=== PATIENT | female | born 2000 | race African-American/Black ===

== ENCOUNTER 2025-06-25 15:54 | Outpatient (CLI) | payer OTHER, SELFPAY ==
--- NOTE | ~2025-06-25 | US_ITS ---
EXAMINATION: US pelvic complete w TV, 06/25/2025 15:57 CDT HISTORY: Abnormal Uterine bleeding Comparison: None Technique: Vazquez-scale and color Doppler images were obtained. Findings: Uterus: Uterus anteverted 7.3 x 4.5 x 4.9 cm. . Endometrium 1.3 cm with a heterogeneous appearance, no areas of increased flow. Right Ovary:Right ovary 4.5 x 2.2 x 2.8 cm, no adnexal mass, normal flow. Left Ovary: Left ovary 3.3 x 2.8 x 3.8 cm, no adnexal mass, normal flow. Free Fluid: None Impression: Abnormal appearing endometrium. Tissue sampling is suggested Reviewed, dictated and finalized at location P. Impression: Abnormal appearing endometrium. Tissue sampling is suggested
== END 2025-06-25 15:55 | disposition home or self-care (01) ==
LOC: MICIMG 15:56
DX: N93.8 Other specified abnormal uterine and vaginal bleeding (principal)
CPT/HCPCS: 76830; 76856

== ENCOUNTER 2025-07-15 00:07 | Day surgery (SDC) | payer OTHER, SELFPAY ==
--- NOTE | 2025-07-03 10:44 | SUR.PREOP ---
[facility] has started construction of its new state of the art ER which will open Spring 2026. With this, we anticipate parking may be a challenge for some our surgical patients and families. Parking spaces are limited but are available for all Surgical, obstetrics, and ER patients sharing this lot. If you arrive and find you are having a hard time finding a parking space, please note that we understand the challenges, please drive around the hospital and park near Hospital Entrance 1. When you enter this entrance, you can ask a volunteer to direct or take you back to the surgical waiting area to check in. We appreciate everyone?s understanding of these expected challenges while we build for your future. Report to the Outpatient Waiting Room, entrance under the green pavilion located off [address], at time _830AM_ on date __07/15/25__. Planned Procedure Time: _1030__.? Time changes happen often and if your time is changed the preop area will call you the afternoon before. - You and your visitor will be asked to self-screen and do not enter if you have any COVID symptoms. Please call surgeon if you need to reschedule. - A mask is optional within the hospital at this time. Patients may have clear liquids (water, carbonated beverages, clear teas, apple juice) until 3 hours prior to surgery with a maximum of 20 ounces. - No food from midnight until time of surgery and no smoking, or chewing tobacco (or any form of nicotine). No chewing gum, candy or mints. Take only the following medications with a SIP of water on the morning of surgery: _None__ DO NOT STOP ANY OF YOUR OTHER PRESCRIPTION MEDICATIONS PRIOR TO SURGERY EXCEPT THE FOLLOWING Hold all vitamins and supplements for 3 days per anesthesiologist. Medications to hold per physician:Holding PO and SQ insulin morning of surgery Date to take last dose vitamins 11.6.25 Please no make-up, nail ugandan, hairspray, perfume, deodorant, or body powder the day of surgery.? No jewelry (including any body piercings) or valuables the day of surgery, leave them at home.? Please take a shower or bath the night before, or the morning of, surgery with an antibacterial soap.? Wear comfortable, loose fitting clothing.? - Jewelry must be removed prior to entering the operating room.? Rings and piercings that are not removed may be cut off. - The hospital will not accept responsibility for valuables.? - Please leave all valuables, including medications, at home the day of surgery. If you are going home after surgery, a licensed pile driver must drive you home.? - NO public transportation without another adult if you receive anesthesia. - We recommend that an adult stay with you for 24 hours following discharge. - We also recommend that you do not drive, make important decision, drink alcoholic beverages, or take any drugs that were not prescribed by your health care provider for at least 24 hours after your discharge time. Follow any additional instructions given to you from your surgeon. Telephone instructions given to __Ty__and asked if any additional questions and then verbalized understanding. Patient advised to call surgeon office or pre surgery nurse liaison [phone] if any additional questions.
[2025-07-03 10:51] VITALS: BMI 49.8
--- OUTSIDE RECORDS SUMMARY | 2025-07-15 00:09 | XMS_ITS | Encounter Summary ---
Author Organization [facility] Address [address] [place] [address] Care Team Providers Care Footwear Stitcher Name Role Phone Evelin Foster PA-C Unavailable [phone] Evelin Foster PA-C Primary Care Provider [phone] Encounter Details Date Type Department Care Team ([facility] Contact Info) Description 10/08/2024 [employer] Message Enc [facility] Call Center [address] [place] [phone] Zak [facility] Provider metFORMIN ER (GLUCOPHAGE-XR) 500 MG 24 hr tablet Social History Tobacco Use Types Packs/Day Years Used Date Smoking Tobacco: Never Smokeless Tobacco: Never Alcohol Use Standard Drinks/Week Comments Not Currently 0 (1 standard drink = 0.6 oz pur e alcohol) B1300 Health Literacy Answer Date Recor ded How often do you need to hav e someone help you when you read instructions, pamphlets, or other written material from your doctor or pharmacy? Never 05/20/2024 [facility] Utilities Answer Date Recorded In the past 12 months has e [employer], [employer], or water [employer] threatened to shut off services in your home? No 05/20/2024 Humiliation, Afraid, Rape, and Kick questionnair e Answer Date Recorded Within the last year, have y ou been afraid of your partner or ex-partner? No 05/20/2024 Within the last year, have y ou been humiliated or emotionally abused in other ways by your partner or ex-partner? No Within the last year, have y ou been kicked, hit, slapped, or otherwise physically hurt by your partner or ex-partner? No 05/20/2024 Within the last year, have y ou been raped or forced to have any kind of sexual activity by your partner or ex-partner? No 05/20/2024 Social Connection and Isolation Panel Answer Date Recorded In a typical week, how many times do you talk on the phone with family, friends, or neighbors? More than three times a week 05/20/2024 How often do you get togethe r with friends or relatives? Once a week 05/20/2024 How often do you attend chur or islam services? Never 05/20/2024 Do you belong to any clubs o r organizations such as sabianist groups, unions, fraternal or athletic groups, or school groups? No 05/20/2024 How often do you attend meet ings of the clubs or organizations you belong to? Never 05/20/2024 Are you , , di vorced, , never , or living with a partner? Living with partner 05/20/2024 AUDIT-C Answer Date Recorded Q1: How often do you have a drink containing alcohol? Never 05/20/2024 Q2: How many drinks containi ng alcohol do you have on a typical day when you are drinking? Patient does not drink Q3: How often do you have si x or more drinks on one occasion? Never 05/20/2024 Overall Financial Resource Strain (CARDIA) Answe r Date Recorded How hard is it for you to pa y for the very basics like food, housing, medical care, and heating? Not hard at all 05/20/2024 [facility] - Occupational Stress Questionnaire Answer Date Recorded Do you feel stress - tense, restless, nervous, or anxious, or unable to sleep at night because your mind is troubled all the time - these days? Only a little 05/20/2024 Exercise Vital Sign Answer Date Recorde d On average, how many days pe r week do you engage in moderate to strenuous exercise (like a brisk walk)? 0 days 05/20/2024 On average, how many minutes do you engage in exercise at this level? 0 min 05/20/2024 Hunger Vital Sign Answer Date Recorded Within the past 12 months, y ou worried that your food would run out before you got the money to buy more. Never true 05/20/20 24 Within the past 12 months, t he food you bought just didn't last and you didn't have money to get more. Never true 05/20/2024 PRAPARE - Transportation Answer Date Re corded In the past 12 months, has l ack of transportation kept you from medical appointments or from getting medications? No 05/06 In the past 12 months, has l ack of transportation kept you from meetings, work, or from getting things needed for daily living? No 05/20/2024 Housing Stability Vital Sign Answer Augustin e Recorded In the last 12 months, was t here a time when you were not able to pay the mortgage or rent on time? No 05/20/2024 In the past 12 months, how m any times have you moved where you were living? 1 05/20/2024 At any time in the past 12 m [facility], were you homeless or living in a halfway (including now)? No 05/20/2024 Comments No Sex and Gender Information Value Date Recorded Sex Assigned at Not on file Legal Sex Female 9:37 AM CDT Gender Identity Not on file Sexual Orientation Not on file documented as of this encounter Functional Status * Are you deaf or do you have serious difficulty hearing Answer Date of Assessment Author Status No 05/20/2024 11:00 PM Kym Hopper RN Active * Are you blind or do you have serious difficulty seeing, even when wearing glasses? Answer Date of Assessment Author Status No 05/20/2024 11:00 PM Kym Hopper RN Active * Do you have serious difficulty walking or climbing stairs? Answer Date of Assessment Author Status No 05/20/2024 11:00 PM Kym Hopper RN Active * Do you have difficulty dressing or bathing? Answer Date of Assessment Author Status No 05/20/2024 11:00 PM Kym Hopper RN Active * Because of a physical, mental, or emotional condition, do you have difficulty doing errands alone such as visiting a doctor's office or shopping? Answer Date of Assessment Author Status No 05/20/2024 11:00 PM Kym Hopper RN Active documented as of this encounter Mental Status * Because of a physical, mental, or emotional condition, do you have serious difficulty concentrating, remembering, or making decisions? Answer Entry Date Author Status No 05/20/2024 11:00 PM Kym Hopper RN Active documented in this encounter Plan of Treatment Not on file documented as of this encounter Goals Goal Patient Goal Type Associated Problems Recent Progress Patient-Stated? Author Health - patient able to perform ADLs independently Lifestyle No Luba Salcido RN documented as of this encounter Visit Diagnoses Not on filedocumented in this encounter Care Teams Footwear Stitcher Relationship Specialty Start Date End Date Evelin Foster PA-C [address] [place] [address] PCP - General PHYSICIAN HOSPITAL NURSING ASSISTANT 05/21/24 Evelin Foster PA-C [address] [place] [address] PHYSICIAN HOSPITAL NURSING ASSISTANT 01/02/24 documented as of this encounter
--- OUTSIDE RECORDS SUMMARY | 2025-07-15 00:09 | XMS_ITS | Encounter Summary ---
Author Organization [facility] Address [address] [place] [address] Care Team Providers Care Hydrologic Engineer Name Role Phone Evelin Foster Primary Care Provider [phone] Encounter Details Date Type Department Care Team (Late st Contact Info) Description 06/24/2025 Results Follow-Up [facility] Medical [facility] Family Medicine [address] [phone] Chelsey Ott PA [address] [address] CBC with auto differential, Iron profile w/ IBC, Ferritin, CBC MORPHOLOGY Social History Tobacco Use Types Packs/Day Years Used Date Smoking Tobacco: Never Smokeless Tobacco: Never Alcohol Use Standard Drinks/Week Comments Never 0 (1 standard drink = 0.6 oz pur e alcohol) PHQ-2 Answer Date Recorded PHQ-2 Total Score (If total score is 3 or more points, staff should administer the PHQ-9) 0 05/29/2025 AUDIT-C Answer Date Recorded Q1: How often do you have a drink containing alcohol? Never 05/29/2025 Q2: How many drinks containi ng alcohol do you have on a typical day when you are drinking? Patient does not drink Q3: How often do you have si x or more drinks on one occasion? Never 05/29/2025 Personal Safety Answer Date Recorded Have you ever been in or are you currently in a harmful physical or emotional relationship or is someone making you feel afraid or unsafe? Denies 12/20/2022 Comments No Sex and Gender Information Value Date Recorded Sex Assigned at Not on file Legal Sex Female 11:15 PM REDEYE GUNNER Gender Identity Female 12/10/2023 12:55 PM CDT Sexual Orientation Straight 12/10/2023 12 :55 PM CDT documented as of this encounter Miscellaneous Notes * Result Encounter Note - Jose Carlos Tristan LPN - 06/24/2025 12:39 PM CDT Pt informed, voiced understanding. Labs faxed to [facility] hematology. documented in this encounter Plan of Treatment Not on file documented as of this encounter Visit Diagnoses Not on filedocumented in this encounter Care Teams Hydrologic Engineer Relationship Specialty Start Date End Date Evelin Foster PA [address] [place] [address] PCP - General Family Medicine 07/27/23 documented as of this encounter
--- OUTSIDE RECORDS SUMMARY | 2025-07-15 00:09 | XMS_ITS | Encounter Summary ---
Author Organization [facility] Address [address] [place] [address] Care Team Providers Care Prep Manager Name Role Phone Evelin Foster PA-C Unavailable [phone] Evelin Foster PA-C Primary Care Provider [phone] Encounter Details Date Type Department Care Team ([facility] Contact Info) Description 10/08/2024 [employer] Message Enc [facility] Medical Group Call Center [address] [place] [phone] Zak [facility] Provider metFORMIN ER (GLUCOPHAGE-XR) 500 MG [...] from your doctor or pharmacy? Never 05/20/2024 [facility] Utilities Answer Date Recorded In the past 12 months has e [employer], [employer], or water [employer] threatened to shut off services in your [...] How often do you attend chur or sabianism services? Never 05/20/2024 Do you belong to any clubs o r organizations such as latter day groups, unions, fraternal or athletic groups, or [...] and heating? Not hard at all 05/20/2024 [facility] Occupat ional Health - Occupational Stress [...] any time in the past 12 m [facility], were you homeless or living in a skilled nursing (including now)? No 05/20/2024 Comments No Sex [...] on filedocumented in this encounter Care Teams Prep Manager Relationship Specialty Start Date End Date Evelin Foster PA-C [address] [place] [address] PCP - General PHYSICIAN ESL TEACHER 05/21/24 Evelin Foster PA-C [address] [place] [address] PHYSICIAN ESL TEACHER 01/02/24 documented as of this encounter
--- OUTSIDE RECORDS SUMMARY | 2025-07-15 00:09 | XMS_ITS | Encounter Summary ---
Author Organization [facility] Address [address] [place] [address] Care Team Providers Care Aging Room Operator Name Role Phone Lon Isaac MD Primary Care Provider [phone] Evelin Foster PA-C Unavailable [phone] None, Provider Primary Care Provider Unavaila ble Evelin Foster PA-C Primary Care Provider [phone] Encounter Details Date Type Department Care Team (Late st Contact Info) Description 05/14/2024 [facility] [address] [address] Stephanie Guallpa MA Social History Tobacco Use Types Packs/Day Years Used Date Smoking Tobacco: Never Smokeless Tobacco: Never Alcohol Use Standard Drinks/Week Comments Not Currently 0 (1 standard drink = 0.6 oz pur e alcohol) Comments Unknown Sex and Gender Information Value Date Recorded Sex Assigned at Not on file Legal Sex Female 9:37 AM CDT Gender Identity Not on file Sexual Orientation Not on file documented as of this encounter Plan of Treatment Not on file documented as of this encounter Procedures Procedure Name Priority Date/Time Associated Diagnosis Comments BASIC METABOLIC PANEL Routine 05/12/2024 documented in this encounter Results * BASIC METABOLIC PANEL (05/12/2024) SODIUM S/P/B 132 135 - 146 POTASSIUM S/P/B 4.5 CO2 22 CHLORIDE S/P/B 99 GLUCOSE 532 mg/dL CALCIUM S/P/B 9.1 BUN 8 CREATININE S/P/B 0.83 0.5 - 1.0 GFR ESTIMATE 100 05/12/2024 us Default History Genericprovider LABORATORY Final Result documented in this encounter Visit Diagnoses Not on filedocumented in this encounter Care Teams Aging Room Operator Relationship Specialty Start Date End Date Lon Isaac MD [address] [place] [address] PCP - General FAMILY PRACTICE 01/02/24 05/19/24 None, Provider, PCP - General UNKNOWN PHYSICIAN SPECIALTY 05/20/24 Evelin Foster PA-C [address] [place] [address] PCP - General PHYSICIAN BULK CLERK 05/21/24 Evelin Foster PA-C [address] [place] [address] PHYSICIAN BULK CLERK 01/02/24 documented as of this encounter
--- OUTSIDE RECORDS SUMMARY | 2025-07-15 00:09 | XMS_ITS | Clinical Summary ---
Author Organization [facility] Address [address] [place] [address] Care Team Providers Care Dyeing Machine Feeder Name Role Phone Evelin Foster PA-C Unavailable [phone] Evelin Foster PA-C Primary Care Provider [phone] Allergies No known active allergies Medications amLODIPine (NORVASC) 10 MG tablet Take 1 tablet (10 mg total) by mouth daily. 10/04/2023 Active insulin glargine (LANTUS) 100 UNIT/ML injection (PEN) Inject 55 Units into the skin 2 (two) times daily. 33 mL 1 05/26/2024 Active insulin lispro, 1 Unit Dial, (HUMALOG) 100 UNIT/ML injection (PEN) Inject 20 Units into the skin 3 (three) times daily before meals. 18 mL 1 05/26/2024 Active insulin lispro, 1 Unit Dial, (HUMALOG) 100 UNIT/ML injection (PEN) [71-140: 0 units] [141-180: 6 units] [181-220: 8 units] [221-260: 10 units] [261-300: 12 units] [301-350: 14 units] [351-400: 16 units] 18 mL 1 05/26/2024 Active Lancet Device MiscIndications: Diabetes mellitus, new onset (CMS/HCC HHS/HCC) Use with lancet 1 each 1 05/26/2024 Active Lancets 30G MiscIndications: Diabetes mellitus, new onset (CMS/HCC HHS/HCC) 1 each by Does not apply route 3 (three) times daily before meals. 100 each 2 05/26/2024 Active metFORMIN ER (GLUCOPHAGE-XR) 500 MG 24 hr tablet Take 1 tablet (500 mg total) by mouth 2 (two) times daily with meals. 60 tablet 2 05/26/2024 Active lisinopril (PRINIVIL) 5 MG tablet Take 1 tablet (5 mg total) by mouth daily. 30 tablet 2 05/27/2024 Active Active Problems Problem Noted Date Diagnosed Date Hyperglycemia 05/20/2024 Obesity 02/20/2024 Essential (primary) hypertension Family History Medical History Relation Comments Heart Attack Father Colon Cancer Mother Stent Cardiac Mother Relation Status Comments Father Alive Mother Social History Tobacco Use Types Packs/Day Years Used Date Smoking Tobacco: Never Smokeless Tobacco: Never Tobacco Cessation:Counseling Given: Not Answered Alcohol Use Standard Drinks/Week Comments Not Currently 0 (1 standard drink = 0.6 oz pur e alcohol) B1300 Health Literacy Answer Date Recor ded How often do you need to hav e someone help you when you read instructions, pamphlets, or other written material from your doctor or pharmacy? Never 05/20/2024 [employer] Stepsities Answer Date Recorded In the past 12 months has [email or web address], [employer], or water femeninas threatened to shut off services in your [...] week 05/20/2024 How often do you attend [facility] or episcopalian services? Never 05/20/2024 Do you belong to any clubs o r organizations such as restorationism groups, unions, fraternal or athletic groups, or [...] and heating? Not hard at all 05/20/2024 [facility] Occupat ional Health - Occupational Stress [...] any time in the past 12 m [facility], were you homeless or living in a senior living (including now)? No 05/20/2024 Comments No Sex and Gender Information Value Date Recorded Sex Assigned at Not on file Legal Sex Female 9:37 AM CDT Gender Identity Not on file Sexual Orientation Not on file Last Filed Vital Signs Vital Sign Reading Time Taken Comments Blood Pressure 125/66 05/26/2024 3:12 PM CDT Pulse 65 05/26/2024 3:12 PM CDT Temperature 36.6 C (97.9 F) 05/26/2024 3:12 PM CDT Respiratory Rate 16 05/26/2024 3:12 PM CDT Oxygen Saturation 100% 05/26/2024 3:12 PM CDT Inhaled Oxygen Concentration - - Weight 153.4 kg (338 lb 3 oz) 05/26/2024 3:00 AM CDT Height 170.2 cm (5' 7) 05/20/2024 11:36 AM CDT Body Mass Index 52.97 05/20/2024 11:36 AM CDT Plan of Treatment Health Maintenance Due Date Last Done Comments Cervical Cancer Screening Pa p Smear (Age 21 to 29) Every 3 Years 1998 Cervical Cancer Screening 1998 Annual Physical 2001 HPV Vaccines (1 - 3-dose series) 2013 Hepatitis C 2016 DTaP, Tdap and Td Vaccines ( 1 - Tdap) 2017 Hepatitis B Vaccines (1 of 3 - 19+ 3-dose series) 2017 PHQ-2 (Physician [facility] [place] [facility] [place]) 09/05/2024 COVID-19 Vaccine (3 - 2024-2 6 season) 2025 11/06/2021, 10/05/2021 Influenza Adult (#1) 2025 07/20/2023 Hepatitis A Vaccines Aged Out No long er eligible based on patient's age to complete this topic Meningococcal B Vaccine Aged Out No l onger eligible based on patient's age to complete this topic Meningococcal Vaccine Aged Out No padmini susanna eligible based on patient's age to complete this topic Pneumococcal Vaccine: Pediatrics (0 to 5 Years) and At-Risk Patients (6 to 49 Years) Aged Out No longer eligible b ased on patient's age to complete this topic RSV Immunizations Under 20 Months Aged Out No longer eligible b ased on patient's age to complete this topic Goals Goal Patient Goal Type Associated Problems Recent Progress Patient-Stated? Author Health - patient able to perform ADLs independently Lifestyle No Luba Salcido, RN Insurance [facility] Advance Directives * Full Code (Latest Code Status on File) Date Activated Date Inactivated Comments 05/20/2024 8:30 PM 05/26/2024 7:15 PM Care Teams Dyeing Machine Feeder Relationship Specialty Start Date End Date Evelin Foster PA-C [address] [place] [address] PCP - General PHYSICIAN INFORMATICS ANALYST 05/21/24 Evelin Foster PA-C [address] [place] [address] PHYSICIAN INFORMATICS ANALYST 01/02/24
--- OUTSIDE RECORDS SUMMARY | 2025-07-15 00:09 | XMS_ITS | Encounter Summary ---
Author Organization [facility] Address [address] [place] [address] Care Team Providers Care Telephonic Nurse Case Manager Name Role Phone Evelin Foster PA-C Unavailable [phone] Evelin Foster PA-C Primary Care Provider [phone] Encounter Details Date Type Department Care Team ([facility] Contact Info) Description 10/01/2024 [employer] Message Enc [facility] Medical Group Call Center [address] [place] [phone] Zak, [facility] Provider lisinopril (PRINIVIL) 5 MG tablet Social History Tobacco Use Types Packs/Day [...] from your doctor or pharmacy? Never 05/20/2024 [facility] Utilities Answer Date Recorded In the past 12 months has e [employer], [employer], or water [employer] threatened to shut off services in your [...] How often do you attend chur or gnosticism services? Never 05/20/2024 Do you belong to any clubs o r organizations such as yazidism groups, unions, fraternal or athletic groups, or [...] and heating? Not hard at all 05/20/2024 [facility] of Occupat ional Health - Occupational Stress [...] any time in the past 12 m [facility], were you homeless or living in a usp (including now)? No 05/20/2024 Comments No Sex [...] on filedocumented in this encounter Care Teams Telephonic Nurse Case Manager Relationship Specialty Start Date End Date Evelin Foster PA-C [address] [place] [address] PCP - General PHYSICIAN NEUROPHYSIOLOGICAL TECHNICIAN 05/21/24 Evelin Foster PA-C [address] [place] [address] PHYSICIAN NEUROPHYSIOLOGICAL TECHNICIAN 01/02/24 documented as of this encounter
--- OUTSIDE RECORDS SUMMARY | 2025-07-15 00:09 | XMS_ITS | Encounter Summary ---
Author Organization [facility] Address [address] [place] [address] Care Team Providers Care Junior Accounting Clerk Name Role Phone Lon Isaac MD Primary Care Provider [phone] Evelin Foster PA-C Unavailable [phone] None, Provider Primary Care Provider Unavaila ble Evelin Foster PA-C Primary Care Provider [phone] Encounter Details Date Type Department Care Team (Late Contact Info) Description 05/18/2024 [place] Message Enc [facility], [facility] [address] [place], [place] [id number] Zulay Talavera, [facility]. THOMAS [address], [place] [id number] Test results Social History Tobacco Use Types Packs/Day Years [...] from your doctor or pharmacy? Never 05/20/2024 [facility] Utilities Answer Date Recorded In the past 12 months has th e electric, gas, oil, or water company threatened to shut off services in your [...] week 05/20/2024 How often do you attend [facility] or rastafarian services? Never 05/20/2024 Do you belong to any clubs o r organizations such as religious groups, unions, fraternal or athletic groups, or [...] and heating? Not hard at all 05/20/2024 [facility] [place] of Occupat ional Health - Occupational Stress [...] any time in the past 12 m [facility], were you homeless or living in a long-term (including now)? No 05/20/2024 Comments Unknown Sex and Gender Information Value Date Recorded Sex Assigned at Not on file Legal Sex Female 9:37 AM CDT Gender Identity Not on file Sexual Orientation Not on file documented as of this encounter Functional Status * Question Answer Date of Assessment Author Status Do you have serious difficulty walking or climbing stairs? No 05/20/2024 11:00 PM SHANTHIT Kym Jarrett RN A ctive Do you have difficulty dressing or bathing? No 05/20/2024 11:00 PM Kym Hopper RN Active Because of a physical, mental, or emotional condition, do you have difficulty doing errands alone such as visiting a doctor's office or shopping? No 05/20/2024 11:00 PM Kym Hopper RN Ac tive * AUDIT-C Score Answer Date of Assessment Author Status 0 05/20/2024 9:00 PM Kym Hopper RN Active * Question Answer Date of Assessment Author Status Q1: How often do you have a drink containing alcohol? Never 05/20/2024 9:00 PM Kym Hopper RN Active Q2: How many drinks containing alcohol do you have on a typical day when you are drinking? Patient does not drink 05/20/2024 9:00 PM Kym Hopper RN Active Q3: How often do you have six or more drinks on one occasion? Never 05/20/2024 9:00 PM Kym Hopper RN Active * Question Answer Date of Assessment Author Status Are you deaf or do you have serious difficulty hearing No 05/20/2024 11:00 PM Kym Hopper RN Ac tive Are you blind or do you have serious difficulty seeing, even when wearing glasses? No 05/20/2024 11:00 PM Kym Hopper RN Ac tive * Calculated C-SSRS Risk Score (Lifetime/Recent) Answer Date of Assessment Author Status No Risk Indicated 05/20/2024 11:37 AM Aureliano Landa RN Active * [place] Suicide Severity Rating Scale (Screener/Recent Self-Report) Question Answer Date of Assessment Author Status 1. Wish to be (Past 1 Month) No 05/20/2024 11:37 AM Araseli Landa RN A ctive 2. Non-Specific Active Suicidal Thoughts (Past 1 Month) No 05/20/2024 11:37 AM Araseli Landa RN A ctive 6. Suicidal Behavior (Lifetime) No 05/20/2024 11:37 AM Araseli Landa RN A ctive documented as of this encounter Mental Status * Question Answer Entry Date Author Status Because of a physical, mental, or emotional condition, do you have serious difficulty concentrating, remembering, or making decisions? No 05/20/2024 11:00 PM Kym Hopper RN Active documented in this encounter Plan of Treatment Not on file documented as of this encounter Goals Goal Patient Goal Type Associated Problems Recent Progress Patient-Stated? Author Health - patient able to perform ADLs independently Lifestyle No Luba Salcido RN documented as of this encounter Visit Diagnoses Not on filedocumented in this encounter Care Teams Junior Accounting Clerk Relationship Specialty Start Date End Date Lon Isaac MD [address] [place] [address] PCP - General FAMILY PRACTICE 01/02/24 05/19/24 None, Provider, PCP - General UNKNOWN PHYSICIAN SPECIALTY 05/20/24 Evelin Foster PA-C [address] [place] [address] PCP - General PHYSICIAN DRAFTER CASTINGS 05/21/24 Evelin Foster PA-C [address] [place] [address] PHYSICIAN DRAFTER CASTINGS 01/02/24 documented as of this encounter
--- NOTE | 2025-07-15 07:24 | WPDHPUPDATE1 ---
History and Physical Update Update Date/Time: 07/15/25 07:24 History and Physical has been reviewed, including an updated exam of the patient. There are NO changes in the patient's condition. Risks, benefits, and alternatives have been discussed and questions answered. Patient agrees to proceed with procedure.
--- NOTE | 2025-07-15 07:24 | PM.HPGS ---
History of Present Illness History of Present Illness Consent: Risks, benefits, and alternatives have been discussed and questions answered. Patient agrees to proceed with procedure. Chief complaint: Abnormal Uterine Bleeding Narrative: Lopez Catalan is a 24 year old female with prolonged uterine bleeding lasting up to a month. Patient had labs drawn and was noted to be anemic at hemoglobin/hematocrit 10.1 and 35. It was recommended to undergo D&C hysteroscopy for further evaluation. Pelvic ultrasound showed a heterogeneous appearance. Risks of infection, bleeding perforation, and possible pathology are reviewed. Patient voices understanding and agrees to proceed. Review of Systems Review of Systems: not repeated day of surgery; patient states no changes in status [facility] Past Medical History Medical History (Updated 07/15/25 @ 07:28 by Cindy Martinez MD) Hidradenitis suppurativa Diabetes HTN (hypertension) Social History Social History Smoking status: Former smoker Tobacco type: cigars Living arrangements: with friend(s) Spiritual care concerns: No Meds Home Medications and Allergies Home Medications ?Medication ?Instructions ?Recorded ?Confirmed ?Type amlodipine 10 mg tablet 10 mg PO HS 07/03/25 07/03/25 History atorvastatin 20 mg tablet 20 mg PO QPM 07/03/25 07/03/25 History blood-glucose sensor (Dexcom G7 07/03/25 07/03/25 History Sensor device) ferrous sulfate 325 mg (65 mg 325 mg PO DAILY 07/03/25 07/03/25 History iron) tablet (Feosol) insulin glargine 100 unit/mL (3 55 unit subcut BID 07/03/25 07/03/25 History mL) subcutaneous pen (Lantus Solostar U-100 Insulin) insulin lispro 100 unit/mL 1 sliding scale dose subcut AC 07/03/25 07/03/25 History subcutaneous pen (Humalog KwikPen (U-100) Insulin) lisinopril 5 mg tablet 5 mg PO HS 07/03/25 07/03/25 History metformin 500 mg tablet,extended 500 mg PO BID 07/03/25 07/03/25 History release 24 hr tirzepatide 7.5 mg/0.5 mL 7.5 mg subcut WEEKLY 07/03/25 07/03/25 History subcutaneous pen injector (Yamel) valacyclovir 1 gram tablet 1,000 mg PO Q12H PRN viral 07/03/25 07/03/25 History Allergies Allergy/AdvReac Type Severity Reaction Status Date / Time No Known Allergies Allergy Verified 07/03/25 10:45 Exam Const: General: healthy appearing, alert and obese (BMI 50.2) Orientation/consciousness: patient oriented x3 Resp: Effort & Inspection: normal respiratory effort Auscultation: clear to auscultation bilaterally Cardio: Rate: regular rate Rhythm: regular rhythm GI: GI Palp: Yes Soft to palpation, No Tenderness to palpation present (GI) and No Palpable mass present : External Female Exam: normal external appearance Speculum Exam - Vagina: normal appearance of the vagina and normal vaginal discharge Speculum Exam - Cervix: normal appearance of the cervix (Suboptimal visualization) Bimanual exam- vagina & uterus: uterine size normal (By ultrasound) Bimanual Exam- Adnexa, other: normal adnexae (By ultrasound) and No adnexal tenderness Neuro: General: patient oriented x3 Assessment and Plan Assessment and plan (1) Menorrhagia: Code(s): N92.0 - Excessive and frequent menstruation with regular cycle Status: Acute Assessment and Plan: Plan to proceed with D&C hysteroscopy
--- NOTE | 2025-07-15 07:43 | W.PM.PROC2 ---
Procedure Note - Detailed Date of Procedure 07/15/25 Pre-op Diagnosis Menorrhagia Post-op Diagnosis Same Procedure Performed D&C hysteroscopy Surgeon Cindy Martinez MD Anesthesia MAC Findings Uterus sounds to 8cm. Endometrium was very irregular area with papillary areas and increased vascularity. Description of Procedure The patient was taken to the operating room and placed under anesthesia in the dorsal lithotomy position. She was prepped and draped in usual sterile fashion. Henderson speculum was placed in the vagina and her cervix grasped the anterior lip with a tenaculum. The uterus is sounded to 8cm. The diagnostic hysteroscope was placed and with the above-stated findings the small Aveta resection device is placed. Under direct visualization the papillary areas were resected. The hysteroscope was then removed and the sharp curette used to curette the endometrium until a good uterine cry was noted in all areas. Sponge, needle, and instrument counts are correct per the OR staff. Patient was awakened from anesthesia and taken to recovery in stable condition. Estimated Blood Loss 5 Drains No Packing No Pathology Yes (Endometrial shavings and curettings) Complications No immediate complications Condition Stable Disposition PACU
[2025-07-15] MEDS: ACETAMINOPHEN 500 MG TABLET 1000 MG PO (09:15)
[2025-07-15 09:23] VITALS: BP 124/76; PULSE 66; TEMP 36.5; O2SAT 100; BMI 49.4
--- NOTE | 2025-07-15 09:23 | WPDANESEPPF ---
Anes - Initial Pre Proc Eval Procedure: Operation Date: 07/15/25 10:30 Proposed Procedures p Hysteroscopy Dilation and Curettage - Cindy Martinez MD Date/Time: 07/15/25 09:23 Surgeon: Cindy Martinez MD Pre Op Diagnosis: Abnormal Uterine Bleeding Patient Data Age: 24 Gender: F Height: 1.7 m Weight: 144.5 kg Allergies Allergy/AdvReac Type Severity Reaction Status Date / Time No Known Allergies Allergy Verified 07/03/25 10:45 Home Medications ?Medication ?Instructions ?Recorded ?Confirmed ?Type amlodipine 10 mg tablet 10 mg PO HS 07/03/25 07/03/25 History atorvastatin 20 mg tablet 20 mg PO QPM 07/03/25 07/03/25 History blood-glucose sensor (Dexcom G7 07/03/25 07/03/25 History Sensor device) ferrous sulfate 325 mg (65 mg 325 mg PO DAILY 07/03/25 07/15/25 History iron) tablet (Feosol) insulin glargine 100 unit/mL (3 55 unit subcut BID 07/03/25 07/03/25 History mL) subcutaneous pen (Lantus Solostar U-100 Insulin) insulin lispro 100 unit/mL 1 sliding scale dose subcut AC 07/03/25 07/03/25 History subcutaneous pen (Humalog KwikPen (U-100) Insulin) lisinopril 5 mg tablet 5 mg PO HS 07/03/25 07/03/25 History metformin 500 mg tablet,extended 500 mg PO BID 07/03/25 07/03/25 History release 24 hr tirzepatide 7.5 mg/0.5 mL 7.5 mg subcut WEEKLY 07/03/25 07/03/25 History subcutaneous pen injector (Mounjaro) valacyclovir 1 gram tablet 1,000 mg PO Q12H PRN viral 07/03/25 07/03/25 History Laboratory Tests 07/15/25 09:11 POC Capillary Glucose 95 mg/dl (65-105) Patient hx anesthesia problems: none Family hx anesthesia problems: none Results Review: All pre-operative results and documents have been reviewed as part of the pre-operative evaluation. [facility] Past Medical History Medical History Hidradenitis suppurativa Diabetes HTN (hypertension) Social History Social History Smoking status: Former smoker Tobacco type: cigars Living arrangements: with friend(s) Spiritual care concerns: No Anes - Eval Final PreProcedure Day of Procedure 07/15/25 09:23 Patient weight: super morbidly obese Heart: regular rate and rhythm Lungs: clear to auscultation Airway: Mallampati scale class II Neurological: alert and oriented Last oral intake: >/= 8 hours ASA classification: III Emergent: no Anesthetic plan: proceed Anesthesia type and monitoring: general GIVS and standard monitoring Results Review: All pre-operative results and documents have been reviewed as part of the pre-operative evaluation. Informed Consent: The patient's anesthetic plan and its attendant risks and benefits were discussed with the patient/family/POA. Questions were solicited and answers provided to the satisfaction of the patient/family/POA.
[2025-07-15 09:28] LABS: BEDSIDEPREGUCG Negative (Negative)
[2025-07-15] MEDS: LACTATED RINGERS 1,000 ML 30 ML IV CONT (09:36)
--- NOTE | 2025-07-15 10:19 | S_PTH ---
PATIENT: Lopez Catalan LOC: [facility] U#:[id number] AGE/SX: 24/F ROOM: RE07/15/[address]: Cindy Martinez MD : 2000 BED: DIS: 07/15/2025 SPEC #: [id number] RECD: 07/15/25 11:57 STATUS: SOLOMON REQ #: [id number] TERE: 07/15/25 10:[address]: Cindy Martinez DEPT: [facility] Surgical RECD BY: Ayleen Fuentes ENTERED: 07/15/25 11:57 SP TYPE: Surgical OTHR DR: Evelin Foster, PA Tissues: A - Endometrial Curettings Procedures: Hematoxylin and Eosin Stain Gross and Microscopic Level 4
[2025-07-15 10:29] VITALS: BP 131/74; PULSE 77; RESP 14; O2SAT 99
[2025-07-15] MEDS: KETOROLAC 30 MG/ML VIAL (*BKC) IV PUSH (10:52)
[2025-07-15 11:00] VITALS: BP 131/74; PULSE 77; RESP 18
[2025-07-15] MEDS: oxyCODONE HCL (*CRX) 5 MG TAB IR PO (11:05)
[2025-07-15 11:30] VITALS: BP 125/88; PULSE 68; RESP 18
== END 2025-07-15 11:35 | disposition home or self-care (01) ==
PROVIDERS: PCP Physician Assistant; Visit Provider Obstetrics & Gynecology Gynecology
PROC: 0U5B8ZZ Destruction of Endometrium, Via Natural or Artificial Opening Endoscopic (ICD-10-PCS; CPT 58563; principal; 2025-07-15 10:30)
DX: N92.0 Excessive and frequent menstruation with regular cycle (principal); N85.01 Benign endometrial hyperplasia; E11.9 Type 2 diabetes mellitus without complications; Z87.891 Personal history of nicotine dependence; E66.01 Morbid (severe) obesity due to excess calories; Z68.42 Body mass index [BMI] 45.0-49.9, adult
CPT/HCPCS: 58558; 82948; 88305; A9270; J1885; J2003; J2250; J2405; J2704; J3010; J7120